=== PATIENT | female | born 1980 | race Caucasian/White ===

== ENCOUNTER 2016-09-28 09:27 | Emergency (ER) | payer OTHER ==
[2016-09-28 09:54] LABS: BASOPHIL 0.3 % (0-2); EOSINOPHIL 3.1 % (0-5); HCT 43.9 % (37.0-47.0); HGB 15.4 g/dl (12.5-16.0); MCH 30.6 pg (25.0-31.0); MCHC 35.1 g/dL (32.0-36.0); MCV 87.1 fL (78.0-100.0); MONOCYTE 6.5 % (0-12); MPV 8.3 fL (6.0-9.5); NEUTROPHIL 63.1 % (41-80); PLT 247 K/uL (150-400); RBC 5.04 M/uL (4.20-5.40); RDW 12.3 % (11.5-14.0); WBC 7.4 K/uL (4.0-10.5)
[2016-09-28 10:07] LABS: ALBUMIN 4.4 g/dL (3.5-5.0); BILIRUBIN - TOTAL 0.4 mg/dL (0.1-1.0); CREATININE 0.7 mg/dL (0.5-1.0); GLOBULIN (CALCULATION) 2.5 g/dL (2.2-4.2); TOTAL PROTEIN 6.9 g/dL (6.4-8.3)
[2016-09-28 10:34] LABS: AMPHETAMINES POSITIVE (NEGATIVE); BARBITURATES NEGATIVE (NEGATIVE); BENZODIAZEPINES NEGATIVE (NEGATIVE); COCAINE NEGATIVE (NEGATIVE); MARIJUANA (THC) NEGATIVE (NEGATIVE); METHADONE NEGATIVE (NEGATIVE); TRICYCLIC ANTIDEPRESSANT NEGATIVE (NEGATIVE)
== END 2016-09-28 11:37 | disposition home or self-care (01) ==
LOC: FER 09:27
PROVIDERS: Internal Medicine
DX: R55 Syncope and collapse (principal); R51 Headache; J45.909 Unspecified asthma, uncomplicated; F17.200 Nicotine dependence, unspecified, uncomplicated; Z91.018 Allergy to other foods; Z79.51 Long term (current) use of inhaled steroids
CPT/HCPCS: 36415; 70450; 80053; 80305; 85025; 93005